=== PATIENT | male | born 1965 | race Caucasian/White ===

== ENCOUNTER 2017-11-06 05:56 | Day surgery (SDC) | payer MEDICARE ==
[2017-11-05 14:27] LABS: ANION GAP 11.6 mmol/L (8-16); CALCIUM 9.2 mg/dL (8.5-10.1); CARBON DIOXIDE 28.4 mmol/L (21.0-32.0); CREATININE - SERUM 1.3 mg/dL (0.6-1.3)
[2017-11-05 14:33] LABS: BASOPHILS 0.8 % (0-2); EOSINOPHILS 6.6 % (0-7); HEMATOCRIT 46.4 % (42.0-54.0); LYMPHOCYTES 35.5 % (15-50); MCHC 34.5 g/dL (31.0-37.0); MCV 87.1 fL (80.0-100.0); MEAN PLATELET VOLUME 12.2 fL (7.4-10.4); MONOCYTES 8.3 % (2-11); NEUTROPHILS 48.8 % (40-80); PLATELET COUNT 119 10x3/uL (130-400); RBC 5.33 10x6/uL (4.20-6.10); RDW 13.8 % (11.5-14.5); WBC 5.9 10x3/uL (4.8-10.8)
[~2017-11-06] VITALS: Ht 182.9 cm; Wt 101.6 kg
--- NOTE | ~2017-11-06 | OP ---
PATIENT NAME: BALAJI CARVALHO MEDICAL RECORD: [id number] :67 LOCATION:D.OPS ADMISSION DATE: SURGEON: HONORIO MORENO MD DATE OF OPERATION: 11/06/2017 PREOPERATIVE DIAGNOSES: 1. Right inguinal hernia. 2. Gout. 3. Obstructive sleep apnea. 4. Lumbar radiculopathy. 5. Legal blindness. POSTOPERATIVE DIAGNOSES: 1. Right inguinal hernia. 2. Gout. 3. Obstructive sleep apnea. 4. Lumbar radiculopathy. 5. Legal blindness. PROCEDURE: Right inguinal hernia repair with medium PHS mesh. SURGEON: Honorio Moreno MD REPORT OF PROCEDURE: The patient's right groin was prepped and draped in sterile fashion. An oblique incision was made above the inguinal ligament. Electrocautery was used to dissect through the subcutaneous tissue down to the external oblique fascia. This fascia was incised with electrocautery. The spermatic cord was elevated and a Julia was placed around it. The patient had direct hernia defect. This was freed up from the spermatic cord. We opened up the hernia defect and pushed all the contents back into the abdominal cavity. The preperitoneal space of Retzius was opened up in all directions and a medium PHS mesh was inserted. This was sutured down on all 4 sides using interrupted 0 Vicryls. The ilioinguinal nerve was found and high ligated. The external oblique fascia was then reapproximated with running 2-0 Vicryl, Aisha's was closed with interrupted 3-0 Vicryl, and the skin was closed with running subcutaneous 5-0 Monocryl. COMPLICATIONS: None. CONDITION: Stable. ANESTHESIA: General endotracheal and local. BLOOD LOSS: Minimal. TRANSINT:[id number] Voice Confirmation ID: [id number] DOCUMENT ID: [id number] OPERATIVE REPORT [id number] BALAJI CARVALHO HONORIO TEAGUE MD CC: DAMIAN MARTINEZ [id number] DICTATION DATE: 11/06/17 1148 ENAMEL FINISHER: 11/06/17 1202 [facility] [address] [id number]
[~2017-11-06 05:56] MED LIST: CIALIS5 MG PO; CIPRO500 MG PO; FLAGYL500 MG PO; FLOMAX0.4 MG PO; GEMFIBROZIL600 MG; MULTIPLE VITAMI1 TA1 PO; NEURONTIN 300300 MG PO; PROSCAR5 MG PO; SAW PALMETTO450 MG PO; VITAMIN D2000 UNIT PO; VOLTAREN75 MG; ZEGERID 20 MG C1 CAP PO; ZYLOPRIM300 MG
[2017-11-06 09:43] VITALS: BP 118/65; Ht 182.9 cm; Wt 101.6 kg
[2017-11-06] MEDS ORDERED: HYDROCODONE-APA1 TAB PO (11:43)
== END 2017-11-06 15:40 | disposition home or self-care (01) ==
LOC: D.OPS 05:56
PROVIDERS: Surgery
DX: K40.90 Unilateral inguinal hernia, without obstruction or gangrene, not specified as recurrent (principal); M10.9 Gout, unspecified; G47.33 Obstructive sleep apnea (adult) (pediatric); M54.16 Radiculopathy, lumbar region; H54.8 Legal blindness, as defined in USA; Z01.812 Encounter for preprocedural laboratory examination

== ENCOUNTER → 2018-05-20 22:19 | Outpatient (CLI) | payer MEDICARE ==
[2017-11-06 09:43] VITALS: BMI 30.4
[~2018-05-20 22:19] MED LIST changes: +HYDROCODONE-APA1 TAB PO
== END | disposition home or self-care (01) ==
LOC: D.MAMMO 15:00
DX: N64.4 Mastodynia (principal)

== ENCOUNTER 2020-05-02 17:07 | Inpatient (IN) | payer MEDICARE ==
[~2020-05-02] VITALS: Ht 182.9 cm; Wt 105.5 kg
--- NOTE | 2020-05-02 17:45 | NUR ---
KAREN AND CARLYN'S X 2 DRAWN
[2020-05-02 17:51] VITALS: BP 129/76
[2020-05-02 18:11] LABS: BASOPHILS 0.2 % (0-2); EOSINOPHILS 0.5 % (0-7); HEMATOCRIT 41.9 % (42.0-54.0); HEMOGLOBIN 14.1 g/dL (13.5-17.5); IMMATURE GRANULOCYTES 0.5 % (0-5); LYMPHOCYTES 35.5 % (15-50); MCH 29.9 pg (26.0-34.0); MCHC 33.7 g/dL (31.0-37.0); MONOCYTES 6.6 % (2-11); NEUTROPHILS 56.7 % (40-80); PLATELET COUNT 180 10x3/uL (130-400); RBC 4.71 10x6/uL (4.20-6.10); RDW 14.2 % (11.5-14.5); WBC 4.4 10x3/uL (4.8-10.8)
[2020-05-02 18:18] LABS: APTT 25.6 SECONDS (22.8-39.4)
[2020-05-02 18:23] LABS: INR 0.84 (0.85-1.17); PROTIME 11.5 SECONDS (11.6-15.0)
[2020-05-02 18:24] VITALS: BP 129/70
[2020-05-02 18:49] LABS: CALC OSMOLALITY 281 mosm/kg (275-300); CALCIUM 8.8 mg/dL (8.5-10.1); CARBON DIOXIDE 31.7 mmol/L (21.0-32.0); CHLORIDE - SERUM 105 mmol/L (98-107); CREATININE - SERUM 1.1 mg/dL (0.6-1.3); GLUCOSE 98 mg/dL (74-106); POTASSIUM - SERUM 3.9 mmol/L (3.5-5.1); SODIUM 141 mmol/L (136-145); UREA NITROGEN 16 mg/dL (7-18); eGFR NON AFRICAN AMERICAN 74 mL/min (90-120)
[2020-05-02 19:06] LABS: ALBUMIN 2.7 g/dL (3.4-5.0); ALKALINE PHOSPHATASE 65 U/L (30-120); ALT (SGPT) 39 U/L (10-68); BILIRUBIN - TOTAL 0.42 mg/dL (0.2-1.3); CKMB 0.6 U/L (0.0-3.6); CREATINE KINASE 67 UL (21-232); PRO BNP 159 pg/mL (0-125); PROTEIN - SERUM 6.9 g/dL (6.4-8.2)
[2020-05-02 19:08] LABS: TROPONIN-I < 0.017 ng/mL (0.000-0.060)
--- NOTE | 2020-05-02 19:08 | NUR ---
REPORT TO GAVIOTA DAVIS AND GAVIOTA OSEGUERA
--- NOTE | 2020-05-02 20:34 | NUR ---
STOP TIME EMILY 1 GM 2033
--- NOTE | 2020-05-02 20:45 | NUR ---
PATIENT IS ADMITTED. HE IS ALERT AND ORIENTED. THE PATIENT IS BLIND. HE HAS A URINAL. HE IS ON ISOLATION FOR POSTIVE COVID 19.
[2020-05-02 22:12] VITALS: BP 136/85; Ht 182.9 cm; Wt 105.5 kg
--- NOTE | 2020-05-02 22:57 | NUR ---
PATIENT IS RESTING COMFORTABLY. HE IS ALERT AND ORIENTED. I FOUND THE PATIENT'S CONDOM CATHETER SUPPIES HIS BROUGHT TO THE ER. WE WILL MONITOR THE PATIENT'S RESPIRATORY STATUS.
[2020-05-03] VITALS: BP 125/68
--- NOTE | 2020-05-03 04:13 | NUR ---
PATIENT IS SLEEPING IN BED. HE IS BLIND. HE IS ALERT AND ORIENTED. HE IS ON IV FLUIDS. HE IS ON ROOM AIR. WE WILL CONTINUE TO MONITOR HIS RESPIRATORY STATUS.
[2020-05-03 06:49] LABS: CALC OSMOLALITY 282 mosm/kg (275-300); CALCIUM 9.1 mg/dL (8.5-10.1); CHLORIDE - SERUM 106 mmol/L (98-107); MAGNESIUM - SERUM 2.3 mg/dL (1.8-2.4); PHOSPHOROUS 2.8 mg/dL (2.5-4.9); POTASSIUM - SERUM 3.9 mmol/L (3.5-5.1); SODIUM 140 mmol/L (136-145); UREA NITROGEN 16 mg/dL (7-18); eGFR NON AFRICAN AMERICAN 83 mL/min (90-120)
[2020-05-03 06:52] LABS: GLUCOSE 147 mg/dL (74-106)
[2020-05-03 07:08] LABS: HEMATOCRIT 38.7 % (42.0-54.0); MCH 29.5 pg (26.0-34.0); MCHC 33.6 g/dL (31.0-37.0); MCV 87.8 fL (80.0-100.0); MEAN PLATELET VOLUME 10.4 fL (7.4-10.4); PLATELET COUNT 165 10x3/uL (130-400); RBC 4.41 10x6/uL (4.20-6.10); RDW 14.1 % (11.5-14.5); WBC 2.5 10x3/uL (4.8-10.8)
[2020-05-03 07:27] LABS: LYMPHOCYTES 19 % (15-50); MONOCYTES 3 % (2-11); NEUTROPHILS 75 % (40-80); PLATELET ESTIMATE NORMAL; TEAR DROP CELLS OCC
[2020-05-03 07:50] VITALS: BP 139/93
--- NOTE | 2020-05-03 08:00 | NUR ---
PT SITTING UP IN BED, RR EVEN AND UNLABORED. AMBULATED TO BATHROOM WITH STEADY GAIT. CALL LIGHT WITHIN REACH. DENIES NEEDS OR PAIN AT THIS TIME. BED IN LOWEST POSITION. WILL CONTINUE TO MONITOR.
--- NOTE | 2020-05-03 09:54 | NUR ---
I have reviewed this patient and I concur with the Shift Assessment completed by the Licensed Practical Nurse today this shift.
[2020-05-03 12:17] VITALS: BP 139/78
[2020-05-03 20:00] VITALS: BP 133/84
--- NOTE | 2020-05-03 21:14 | NUR ---
PATIENT IS RESTING COMFORTABLY IN BED. HE IS ALERT AND ORIENTED. HE IS BLIND. HE HAS NO COMPLAINTS AT THIS TIME. HIS COVID 19 TEST CAME BACK POSITIVE. WE WILL CONTINUE TO MONITOR HIS RESPIRATORY STATUS.
[2020-05-04 04:00] VITALS: BP 147/58
[2020-05-04 06:18] LABS: CALCIUM 9.1 mg/dL (8.5-10.1); CARBON DIOXIDE 23.7 mmol/L (21.0-32.0); CREATININE - SERUM 1.1 mg/dL (0.6-1.3); MAGNESIUM - SERUM 2.2 mg/dL (1.8-2.4); PHOSPHOROUS 3.5 mg/dL (2.5-4.9); POTASSIUM - SERUM 3.7 mmol/L (3.5-5.1)
[2020-05-04 06:22] LABS: BASOPHILS 0 % (0-2); EOSINOPHILS 0 % (0-7); HEMATOCRIT 37.6 % (42.0-54.0); HEMOGLOBIN 12.6 g/dL (13.5-17.5); IMMATURE GRANULOCYTES 0.7 % (0-5); LYMPHOCYTES 28.9 % (15-50); MCH 29.2 pg (26.0-34.0); MCHC 33.5 g/dL (31.0-37.0); MCV 87.2 fL (80.0-100.0); MEAN PLATELET VOLUME 10.5 fL (7.4-10.4); MONOCYTES 7.2 % (2-11); NEUTROPHILS 63.2 % (40-80); RBC 4.31 10x6/uL (4.20-6.10); RDW 14.1 % (11.5-14.5)
[2020-05-04 06:27] LABS: PLATELET COUNT 205 10x3/uL (130-400); WBC 5.6 10x3/uL (4.8-10.8)
--- NOTE | 2020-05-04 08:00 | NUR ---
PT SITTING UP IN BED, RR EVEN AND UNLABORED. DENIES NEEDS OR PAIN AT THIS TIME. CALL LIGHT WITHIN REACH. STATES HE IS READY FOR DISCHARGE. LUNGS SOUND CLEAR IN ALL LOBES. PT IS ON RA. UP AD ASHLEY. BED IN LOWEST POSITION. WILL CONTINUE TO MONITOR.
[2020-05-04 09:21] VITALS: BP 156/52
[2020-05-04] MEDS ORDERED: AZITHROMYCIN500 MG PO (14:39)
[2020-05-04] MEDS ORDERED: OMNICEF300 MG PO (14:39)
[2020-05-04] MEDS ORDERED: PREDNISONE10 MG PO (14:42)
--- NOTE | 2020-05-04 15:30 | NUR ---
I have reviewed this patient and I concur with the Shift Assessment completed by the Licensed Practical Nurse today this shift.
[2020-05-04] MEDS ORDERED: VENTOLIN HFA [SP8 GM INH (15:44)
--- NOTE | 2020-05-04 15:45 | MORECARE ---
CASE MANAGEMENT DISCHARGE SUMMARY PATIENT: BALAJI CARVALHO UNIT: [id number] ADM DATE: 05/02/20 AGE: 54 : 67 SEX: M ROOM/BED: D.9737 AUTHOR: MARLENA MORENO PHYSICIAN: REFERRING PHYSICIAN: SHAUNA MANCERA MD DATE OF SERVICE: 05/04/20 Discharge Plan Patient Name: BALAJI CARVALHO Facility: [facility]:[place] : 1965 Planned Disposition: Anticipated Discharge Date: Discharge Date: Expected LOS: Initial Reviewer: [email or web address] Initial Review Date: 05/02/2020 Generated: 05/04/20 4:44 pm Comments DCP- Discharge Planning Updated by [email or web address]: Minnie Armando on 05/04/20 2:[address] Patient Name: BALAJI CARVALHO Admission Status: ER Accout number: [id number] Admission Date: 05-02-2020 : 1965 Admission Diagnosis:COVID-19 Attending: SHAUNA MANCERA Current LOS: 2 Anticipated DC Date: Planned Disposition: Primary Insurance: [employer] CHOICE PPO MCR [facility] Discharge Planning Comments: CM met with patient by phone call to complete initial dc planning assessment. CM educated patient on the CM role and verbal consent given by patient to complete assessment. CM verified patient's address, phone number, and emergency contact phone numbers. Patient lives at home with his . At discharge patient plans to return home and feels this is a safe discharge. CM discussed availability of home health, rehab services, and medical equipment. Patient denied known discharge needs at this time. Declination verbalized for no needs. Cm educated pt on DME and HH, and 02. Stated if pt decides he requires equipment, or HH to call CM. CM will assost Dr Tellez in obtaining services or equipment if needed. Transportation provider at discharge will be his . CM explained dc Imm. Pt verbalized understanding with teach back. Original left with pt, copy placed on chart. CM will continue to follow and will assist as needed with dc plans/needs. Retail Furniture Sales: Minnie Armando Patient Name: BALAJI CARVALHO Page [phone] at 1545 All edits/amendments must be made on the electronic document DICTATION DATE: 05/04/20 154 CUSTOMER ASSISTANCE ASSOCIATE: PATY 05/04/20 1544 RPT#: [id number] DC DATE: STATUS: ADM IN [facility] [address] [place] [address] END OF REPORT
--- NOTE | 2020-05-04 17:04 | NUR ---
D/C INSTRUCTIONS REVIEWED WITH PT AND FAMILY MEMBER. BOTH VERBALIZED UNDERSTANDING. IV D/C WITH CATHETER TIP INTACT. PT IN COVID PRECAUTIONS SO UNABLE TO SIGN D/C PAPERWORK. LEFT VIA WHEELCHAIR WITH ALL BELONGINGS.
--- NOTE | 2020-05-05 18:15 | MORECARE ---
CASE MANAGEMENT DISCHARGE SUMMARY PATIENT: BALAJI CARVALHO UNIT: [id number] ADM DATE: 05/02/20 AGE: 54 : 67 SEX: M ROOM/BED: D.0656 AUTHOR: MARLENA MORENO PHYSICIAN: REFERRING PHYSICIAN: SHAUNA MANCERA MD DATE OF SERVICE: 05/05/20 Discharge Plan Patient Name: BALAJI CARVALHO Facility: [facility]:[place] : 1965 Planned Disposition: Anticipated Discharge Date: Discharge Date: 05/04/2020 Expected LOS: Initial Reviewer: [email or web address] Initial Review Date: 05/02/2020 Generated: 05/05/20 7:14 pm Comments DCP- Discharge Planning Updated by [email or web address]: Minnie Armando on 05/04/20 2:[address] Patient Name: BALAJI CARVALHO Admission Status: ER Accout number: [id number] Admission Date: 05-02-2020 : 1965 Admission Diagnosis:COVID-19 Attending: SHAUNA MANCERA Current LOS: 2 Anticipated DC Date: Planned Disposition: Primary Insurance: [employer] CHOICE PPO MCR [facility] Discharge Planning Comments: CM met with patient by phone call to complete initial dc planning assessment. CM educated patient on the CM role and verbal consent given by patient to complete assessment. CM verified patient's address, phone number, and emergency contact phone numbers. Patient lives at home with his . At discharge patient plans to return home and feels this is a safe discharge. CM discussed availability of home health, rehab services, and medical equipment. Patient denied known discharge needs at this time. Declination verbalized for no needs. Cm educated pt on DME and HH, and 02. Stated if pt decides he requires equipment, or HH to call CM. CM will assost Dr Tellez in obtaining services or equipment if needed. Transportation provider at discharge will be his . CM explained dc Imm. Pt verbalized understanding with teach back. Original left with pt, copy placed on chart. CM will continue to follow and will assist as needed with dc plans/needs. Wild Oyster Harvester: Minnie Armando Coverage Notice Reviewer: [email or web address] - Minnie Armando Notice Issued Date-Time: 05/04/2020 15:40 Notice Type: IM Discharge Notice Notice Delivered To: Patient Relationship to Patient: Needle Punch Machine Operator Helper Name: Delivery Method: PHONE - Phone Nem[employer] Days: Prior Verbal Notification: Yes Recipient Understood Notice: Yes Recipient Signature: Med Rec Note Co-signed by Attending: Coverage Notice Comment: raghu Olvera Reviewer: [email or web address] Kevin Armando Notice Issued Date-Time: 05/04/2020 15:40 Notice Type: Patient Choice Letter Notice Delivered To: Patient Relationship to Patient: Needle Punch Machine Operator Helper Name: Delivery Method: PHONE - Phone [employer]: Prior Verbal Notification: Yes Recipient Understood Notice: Yes Recipient Signature: Med Rec Note Co-signed by Attending: Coverage Notice Comment: declination for hh or dme Last DP export: 05/04/20 2:45 p Patient Name: BALAJI CARVALHO Page [phone] at 1815 All edits/amendments must be made on the electronic document DICTATION DATE: 05/05/201813 BIOLOGY PROFESSOR: PATY 05/05/201813 RPT#: [id number] DC DATE:05/04/20 STATUS: DIS IN [facility] [address] [place] [address] END OF REPORT
== END 2020-05-04 17:03 | disposition home or self-care (01) | DRG 177 ==
LOC: D.ER 17:07 → D.M2 19:43
PROVIDERS: Family Medicine; ADMIT Emergency Medicine; ATTEND Emergency Medicine
DX: U07.1 COVID-19 (principal); J96.01 Acute respiratory failure with hypoxia; J18.9 Pneumonia, unspecified organism; G89.29 Other chronic pain; M54.9 Dorsalgia, unspecified; N40.0 Benign prostatic hyperplasia without lower urinary tract symptoms; K21.9 Gastro-esophageal reflux disease without esophagitis; E78.5 Hyperlipidemia, unspecified